=== PATIENT | female | born 1955 | race Caucasian/White ===

== ENCOUNTER 2022-05-01 10:47 | Outpatient (CLI) | payer MEDICARE, BC, SELFPAY | END 2022-05-01 10:48 | disposition home or self-care (01) | LOC: OP CLINIC 10:48 | PROVIDERS: Visit Provider Surgery | DX: Z12.11 Encounter for screening for malignant neoplasm of colon (principal); K63.5 Polyp of colon; K57.30 Diverticulosis of large intestine without perforation or abscess without bleeding; Z86.010 Personal history of colon polyps | CPT/HCPCS: 45385; 88305; 99153; J2250; J3010 ==

== ENCOUNTER 2023-10-25 14:53 | Outpatient (CLI) | payer MEDICARE, BC, SELFPAY ==
--- NOTE | 2023-10-25 15:00 | MM_ITS ---
Patient: JAMEL REED Facility:?[facility] Patient ID:?[id number] Site Patient ID:?[id number]. Site :?[id number] Study:?XRay-Breast Bilateral 3D W/CAD-10/25/2023 3:50:37 PM Ordering Physician:Denisa Final Report: BILATERAL SCREENING MAMMOGRAM WITH COMPUTER-AIDED DETECTION AND TOMOSYNTHESIS TECHNIQUE: CC and MLO views were obtained. These mammographic images have been obtained using full-field digital technique. These mammographic images were interpreted with the benefit of computer-aided detection. Breast Tomosynthesis was used in this interpretation. COMPARISON FILM: 06/07/21, 05/17/20, 03/19/19. FINDINGS: The breasts are heterogeneously dense, which may obscure small masses. IMPRESSION: There is no radiographic evidence for malignancy. ASSESSMENT: BI-RADS Category 1: Negative RECOMMENDATION: Routine screening mammogram in 1 year. A lay language report of this examination will be provided to the patient. Andrew Walker M.D. Diagnostic/Nuclear Medicine Radiologist [email or web address] R& Transcribed: 1:53 pm SP/Dictated by: Andrew Walker MD @ 10/31/2023 10:44:00 AM Signed by:Hui Walker MD @10/31/2023 2:02:50 PM (Electronic Signature)
== END 2023-10-25 14:54 | disposition home or self-care (01) ==
LOC: MAMMO 14:58
PROVIDERS: Visit Provider Obstetrics & Gynecology
DX: Z12.31 Encounter for screening mammogram for malignant neoplasm of breast (principal); R92.2 Inconclusive mammogram
CPT/HCPCS: 77063; 77067

== ENCOUNTER 2024-01-14 13:52 | Outpatient (CLI) | payer MEDICARE, BC, SELFPAY | END 2024-01-14 13:53 | disposition home or self-care (01) | PROVIDERS: PCP Family Medicine; Visit Provider Family Medicine | DX: M85.80 Other specified disorders of bone density and structure, unspecified site (principal); Z83.49 Family history of other endocrine, nutritional and metabolic diseases; Z13.220 Encounter for screening for lipoid disorders; Z13.29 Encounter for screening for other suspected endocrine disorder | CPT/HCPCS: 80053; 80061; 82306; 84443 ==

== ENCOUNTER 2024-02-27 15:15 | Outpatient (CLI) | payer MEDICARE, BC, SELFPAY ==
--- NOTE | 2024-02-27 15:30 | CRLHL7_ITS ---
For Patients: As a result of the Century Cures Act, medical imaging exams and procedure reports are released immediately into your electronic medical record. You may view this report before your referring provider. If you have questions, please contact your health care provider. DXA BONE MINERAL DENSITY STUDY Reason for exam: Osteopenia. Current height (in): 52.5. Weight (lb): 142. Menopause age: 48. Ethnicity: White. 1. Have you had a previous hip or vertebral fracture? No. 2. Have you had any fractures during your adult life which did not result from significant trauma (e.g., auto accident)? No. 3. Did either of your parents have a hip fracture? No. 4. Do you smoke? No. 5. Have you ever taken Glucocorticoids? No. 6. Do you have rheumatoid arthritis? No. 7. Do you have secondary osteoporosis? No. 8. Do you drink 3 or more alcoholic drinks per day? No. 9. Are you being treated for osteoporosis? No. 10. Have you ever taken any of the following medications: Actonel, Evista, Fosamax, Miacalcin, Reclast, Boniva, Forteo, HRT (i.e. estrogen/hormone therapy), Protelos, Prolia, Vitamin D, Calcium, other ??? please specify. ANSWER: Yes, vitamin D and calcium. 11. Do you have any of the following medical conditions: Anorexia or bulimia, asthma or emphysema, end stage renal disease, hyperparathyroidism, any seizure disorders, cancer, inflammatory bowel diseases, hysterectomy, other ??? please specify. ANSWER: No. 12. What was your maximum height (inches)? 63. 13. Do you perform weight bearing exercise regularly? Yes. 14. Do you regularly consume dairy products? No. 15. Do you drink caffeinated beverages? Yes. 16. At what age did your period start? 12. 17. Are you premenopausal? No. 18. How many full term pregnancies have you had? 3. 19. Have you ever missed your period for more than 6 months in a row (not including or menopause)? No. TECHNIQUE: Bone mineral density study was performed using the [employer]. FINDINGS: The results of the study expressed as bone mineral density (BMD) are as follows: Lumbar spine L1 to L4: BMD: 0.872 g/cm2. T-score: -1.6. Z-score: 0.6. Neck Left: BMD: 0.649 g/cm2. T-score: -1.8. Z-score: 0.0. Right: BMD: 0.624 g/cm2. T-score: -2.0. Z-score: -0.2. Total Left: BMD: 0.844 g/cm2. T-score: -0.8. Z-score: 0.7. Right: BMD: 0.821 g/cm2. T-score: -1.0. Z-score: 0.6. IMPRESSION: Osteopenia. *Comparison exams done prior to 02/2020 were performed on different unit, [facility]. COMPARISON: Compared with scan of 07/04/2015, the bone mineral density has decreased by 1.2 percent at the spine and decreased by 2.0 percent at the hip. FRAX 10-year Fracture Risk Major Osteoporotic Fracture: 11 percent Hip Fracture: 2.0 percent Reported Risk Factors: [place] () Neck BMD=0.624, BMI=36.2 Tao Anthony M.D. Diagnostic Radiologist [email or web address] SP/Dictated by: Tao Anthony MD @ 02/28/2024 10:55:00 AM (Electronically Signed)
== END 2024-02-27 15:16 | disposition home or self-care (01) ==
PROVIDERS: PCP Family Medicine; Visit Provider Family Medicine
DX: M85.80 Other specified disorders of bone density and structure, unspecified site (principal); M85.89 Other specified disorders of bone density and structure, multiple sites; Z78.0 Asymptomatic menopausal state
CPT/HCPCS: 77080

== ENCOUNTER 2024-11-16 12:57 | Outpatient (CLI) | payer MEDICARE, BC, SELFPAY ==
--- NOTE | 2024-11-16 13:00 | CRLHL7_ITS ---
For Patients: As a result of the Century Cures Act, medical imaging exams and procedure reports are released immediately into your electronic medical record. You may view this report before your referring provider. If you have questions, please contact your health care provider. BILATERAL SCREENING MAMMOGRAM WITH COMPUTER-AIDED DETECTION AND TOMOSYNTHESIS TECHNIQUE: CC and MLO views were obtained. These mammographic images have been obtained using full-field digital technique. These mammographic images were interpreted with the benefit of computer-aided detection. Breast Tomosynthesis was used in this interpretation. COMPARISON FILM: 10/25/23, 06/07/21, 05/17/20. FINDINGS: The breasts are heterogeneously dense, which may obscure small masses IMPRESSION: There is no radiographic evidence for malignancy. ASSESSMENT: BI-RADS Category 2: Benign RECOMMENDATION: Routine screening mammogram in 1 year. A lay language report of this examination will be provided to the patient. Tao Anthony M.D. Diagnostic Radiologist [email or web address] Transcribed: 2:25 p.mMaryam clay/Dictated by: Tao Anthony MD @ 11/17/2024 8:32:00 AM (Electronically Signed)
== END 2024-11-16 12:58 | disposition home or self-care (01) ==
LOC: MAMMO 12:58
PROVIDERS: PCP Family Medicine; Visit Provider Family Medicine
DX: Z12.31 Encounter for screening mammogram for malignant neoplasm of breast (principal); R92.333 Mammographic heterogeneous density, bilateral breasts
CPT/HCPCS: 77063; 77067